=== PATIENT | female | born 1990 ===

== ENCOUNTER 2025-03-16 11:45 | Inpatient (IN) | payer OTHER ==
[~2025-03-16] VITALS: Ht 152.4 cm; Wt 71.2 kg
[2025-03-16] MEDS ORDERED: B12 ACTIVE1000 MCG PO (16:12)
[2025-03-16] MEDS ORDERED: MULTI VITAMIN1 EACH PO (16:13)
[2025-03-23] MEDS ORDERED: POVIDONE-IODINE 118 ML BOTT TOP ONE (07:30)
[2025-03-23] MEDS ORDERED: EPINEPHRINE HCL/PF 1 MG/ML AMPUL ONE (08:00)
[2025-03-23] MEDS ORDERED: CEFAZOLIN SODIUM 1,000 MG VIAL IV ONE (08:45)
[2025-03-23] MEDS ORDERED: SUGAMMADEX SODIUM 200 MG/2 ML VIAL IV ONE (09:34)
[2025-03-23] MEDS ORDERED: RINGERS SOLUTION,LACTATED 1,000 ML IV SCH (10:30)
[2025-03-23] MEDS ORDERED: ONDANSETRON HCL 2 MG/ML VIAL IV PRN (10:30)
[2025-03-23 12:43] LABS: BASO % 0.4 % (0.1-1.2); EOS # 0.03 (0.04-0.54); EOS % 0.2 % (0.7-7.0); LYMPH # 1.08 (1.18-3.74); LYMPH % 8.9 % (19.3-53.1); MEAN PLATELET VOLUME 9.90 fl (9.4-12.4); MONO # 0.70 (0.24-0.82); MONO % 5.8 % (4.7-12.5); NEUT # 10.17 (1.56-6.13); NEUT % 84.4 % (34.0-71.1); RED CELL DISTRIBUTION WIDTH 12.7 % (11.6-14.4)
[2025-03-23] MEDS ORDERED: CEFOXITIN SODIUM 2,000 MG VIAL IV SCH (13:00)
[2025-03-23] MEDS ORDERED: CEFOXITIN SODIUM 2,000 MG VIAL IV ONE (13:21)
[2025-03-23 14:30] VITALS: BP 112/73
[2025-03-23 16:40] VITALS: BP 108/70
[2025-03-23] MEDS ORDERED: MORPHINE SULFATE 4 MG/ML CARTRIDGE IV PRN (16:45)
[2025-03-23] MEDS ORDERED: ENOXAPARIN SODIUM 40 MG/0.4 ML SYRINGE SUBCUTANEO SCH (21:00)
[2025-03-24 00:31] VITALS: BP 105/70
[2025-03-24 04:30] VITALS: BP 105/67
[2025-03-24 06:01] LABS: URINE APPEARANCE Clear; URINE BILIRRUBIN Negative (NEGATIVE); URINE BLOOD Negative; URINE COLOR Yellow; URINE GLUCOSE Negative (NEGATIVE); URINE KETONE Trace (NEGATIVE); URINE LEUKOCYTE Negative; URINE NITRATE Negative; URINE PROTEIN Negative (NEGATIVE); URINE UROBILINOGEN 0.2 E.U./dl
[2025-03-24 06:04] LABS: URINE RBC 8.6 uL (0.0-20.8)
[2025-03-24 06:31] LABS: BASO % 0.9 % (0.1-1.2); EOS # 0.08 (0.04-0.54); EOS % 0.9 % (0.7-7.0); LYMPH # 2.02 (1.18-3.74); LYMPH % 21.8 % (19.3-53.1); MEAN PLATELET VOLUME 10.10 fl (9.4-12.4); MONO # 0.95 (0.24-0.82); MONO % 10.3 % (4.7-12.5); NEUT # 6.09 (1.56-6.13); NEUT % 65.8 % (34.0-71.1); RED CELL DISTRIBUTION WIDTH 12.5 % (11.6-14.4)
[2025-03-24 06:35] LABS: URINE BACTERIA 1.2 uL (0.0-1933); URINE CAST 0.43 uL (0.0-1.40); URINE EPITHELIAL CELLS 0.3 uL (0.0-38.8); URINE WBC 1.3 uL (0.0-23.2)
[2025-03-24 08:00] VITALS: BP 121/77
[2025-03-24] MEDS ORDERED: ACETAMINOPHEN WITH CODEINE 1 UDTAB TABLET PO PRN (09:00)
[2025-03-24] MEDS ORDERED: ACETAMINOPHEN-1 EAC2 PO (15:05)
[2025-03-24] MEDS ORDERED: DICLOFENAC POTA50 MG PO (15:06)
[2025-03-24] MEDS ORDERED: COLACE100 MG PO (15:07)
== END 2025-03-24 18:42 | disposition home or self-care (01) | DRG 741 ==
LOC: OB/GYN 03-23 06:00 → O/R 03-23 06:00 → SURH 03-23 07:00 → OB/GYN 03-23 13:15
PROVIDERS: ADMIT Obstetrics & Gynecology; ATTEND Obstetrics & Gynecology
PROC: 0USG7ZZ Reposition Vagina, Via Natural or Artificial Opening (ICD-10-PCS; 2025-03-23)
PROC: 0UT97ZZ Resection of Uterus, Via Natural or Artificial Opening (ICD-10-PCS; principal; 2025-03-23 07:00)
DX: D06.7 Carcinoma in situ of other parts of cervix (principal); N72 Inflammatory disease of cervix uteri